=== PATIENT | female | born 1960 | race Caucasian/White ===

== ENCOUNTER → 2017-05-03 | Outpatient (CLI) | payer BC ==
[~2017-05-03] MED LIST: PROZAC20 MG
== END | disposition home or self-care (01) ==
LOC: US 09:49 → MAMMO 11:00
DX: Z13.820 Encounter for screening for osteoporosis (principal); Z12.31 Encounter for screening mammogram for malignant neoplasm of breast; E04.1 Nontoxic single thyroid nodule; N95.9 Unspecified menopausal and perimenopausal disorder; Z90.710 Acquired absence of both cervix and uterus; Z87.310 Personal history of (healed) osteoporosis fracture

== ENCOUNTER → 2017-08-10 | Day surgery (SDC) | payer BC ==
[~2017-08-10] VITALS: Ht 165.1 cm; Wt 54.4 kg
[~2017-08-10] MED LIST changes: +NORCO 5-325 TA1 EACH PO
--- NOTE | ~2017-08-10 | PROC NOTE ---
[place], [place] PROCEDURE NOTE NAME: [facility] #: [id number] UNIT #: [id number] ROOM: DOCTOR: LEOBARDO ENCISO MD BIRTHDATE: [birth year] DOS: 08/10/2017 PREOPERATIVE DIAGNOSIS: Right shoulder and left facial cyst. POSTOPERATIVE DIAGNOSIS: Right shoulder and left facial cyst. PROCEDURE: Excision of right shoulder and left facial cyst. SURGEON: Leobardo Enciso MD COLLECTION CARD CLERK: [id number]. ANESTHESIA: Local (11 mL of 1% plain lidocaine). INDICATIONS: This is a 57-year-old lady with symptomatic cyst on the right posterior shoulder and the left face, who is here for the above-mentioned procedure. The procedure and its complications were explained to the patient in detail preoperatively. Complications that were discussed included but were not limited to bleeding, infection, hematoma/seroma/abscess formation and prolonged pain. She agreed to proceed. DESCRIPTION OF PROCEDURE: After identifying the patient, the patient was brought to the operating suite and placed in the left lateral position. It was decided to proceed with the right shoulder cyst first. Timeout procedure was called and the parts were painted and draped in the usual sterile fashion. An incision in an elliptical fashion was marked and local anesthesia was given. The cyst was incised in its entirety with the help of a knife and removed with the help of electrocautery. It was sent for histopathological diagnosis. Hemostasis was achieved with the help of electrocautery. Thereafter, the subcutaneous tissue was approximated with the help of 3-0 Vicryl in interrupted fashion and the skin edges were approximated with the help of 2-0 nylon in an interrupted simple fashion. A dressing was placed. The patient was then turned to her right side and the parts were then painted and draped in the usual sterile fashion. The incision was marked and local anesthesia was infiltrated. The cyst was then excised in its entirety after incising it with a knife and sending it for histopathological diagnosis. Thereafter, hemostasis was achieved and the subcutaneous tissue was approximated with the help of 3-0 Vicryl and the skin edges were approximated with the help of 4-0 Vicryl in a subcuticular fashion. A dressing was placed. The patient tolerated the procedure well. There were no complications. She was brought back to the recovery room in stable fashion. Dr. Leobardo Enciso, the attending surgeon, was present throughout the operating case. [place], [place] PROCEDURE NOTE NAME: [facility] UNIT #: [id number] ROOM: DOCTOR: LEOBARDO ENCISO MD BIRTHDATE: [birth year] Leobardo Enciso MD CM:PROCNOTE:PROCEDURE NOTE [id number] LEOBARDO ENCISO MD
[2017-08-10 07:53] VITALS: BP 132/61
[2017-08-10 08:07] VITALS: BP 121/67
[2017-08-10 08:28] VITALS: BP 129/78
== END | disposition home or self-care (01) ==
LOC: SDC 08-07 09:30
DX: L72.0 Epidermal cyst (principal); L08.89 Other specified local infections of the skin and subcutaneous tissue; K21.9 Gastro-esophageal reflux disease without esophagitis; F41.9 Anxiety disorder, unspecified; Z90.710 Acquired absence of both cervix and uterus

== ENCOUNTER → 2018-08-15 | Outpatient (CLI) | payer BC ==
[2018-08-15 10:26] LABS: BASO % 0.8 % (0.0-1.0); EOS # 0.2 10*3/uL (0.0-0.4); EOS % 3.4 % (1.0-4.0); HEMATOCRIT 42.4 % (37.0-47.0); HEMOGLOBIN 13.6 g/dl (12.0-16.0); LYMPH # 1.6 10*3/uL (1.3-4.4); LYMPH % 30.9 % (27.0-41.0); MEAN CELL VOLUME 98.4 fl (81.0-99.0); MEAN CORPUSCULAR HGB 31.6 pg (27.0-31.0); MEAN CORPUSCULAR HGB CONC 32.1 g/dl (33.0-37.0); MEAN PLATELET VOLUME 10.7 fl (9.6-12.3); MONO # 0.4 10*3/uL (0.1-1.0); MONO % 6.6 % (3.0-9.0); NEUT # 3.1 10*3/uL (2.3-7.9); NEUT % 57.9 % (47.0-73.0); PLATELET COUNT AUTOMATED 217 10*3/uL (130-400); RED BLOOD COUNT 4.31 10*6/uL (4.10-5.10); WHITE BLOOD COUNT 5.3 10*3/uL (4.8-10.8)
[2018-08-15 10:41] LABS: CHLORIDE 111 mmol/L (98-107); POTASSIUM 3.8 mmol/L (3.5-5.1); SODIUM 143 mmol/L (136-145)
[2018-08-15 11:03] LABS: ALBUMIN 3.9 gm/dl (3.1-4.5); ALKALINE PHOSPHATASE 95 U/L (45-117); BUN 23 mg/dl (7-24); CHOLESTEROL 207 mg/dL (<200); CREATININE 0.78 mg/dL (0.55-1.02); FREE T4 0.83 ng/dl (0.76-1.46); HDL CHOLESTEROL 74 mg/dl (40-60); LDL CHOLESTEROL 122 mg/dL (9-159); SGOT/AST 16 IU/L (3-35); SGPT/ALT 22 U/L (12-78); TOTAL PROTEIN 7.1 gm/dL (6.4-8.2); TRIGLYCERIDES 54 mg/dl (<150); VLDL CHOLESTEROL 11 mg/dL (6-40)
[2018-08-15 12:09] LABS: VITAMIN D, 25-HYDROXY 35.4 ng/mL (30-100)
== END | disposition home or self-care (01) ==
LOC: LAB 08:27 → MAMMO 08:40
PROVIDERS: Internal Medicine
DX: Z12.31 Encounter for screening mammogram for malignant neoplasm of breast (principal); Z13.1 Encounter for screening for diabetes mellitus; Z13.21 Encounter for screening for nutritional disorder; Z13.220 Encounter for screening for lipoid disorders; Z00.01 Encounter for general adult medical examination with abnormal findings; E04.1 Nontoxic single thyroid nodule

== ENCOUNTER → 2019-03-13 | Outpatient (CLI) | payer BC ==
[2019-03-13 17:20] LABS: CREATININE 0.79 mg/dL (0.55-1.02)
== END | disposition home or self-care (01) ==
LOC: LAB 16:38
PROVIDERS: Internal Medicine
DX: R10.9 Unspecified abdominal pain (principal)

== ENCOUNTER → 2019-03-17 | Outpatient (CLI) | payer BC | END | disposition home or self-care (01) | LOC: CT 01:24 | DX: N28.1 Cyst of kidney, acquired (principal); R93.89 Abnormal findings on diagnostic imaging of other specified body structures; Z90.49 Acquired absence of other specified parts of digestive tract; Z90.710 Acquired absence of both cervix and uterus ==

== ENCOUNTER → 2019-04-10 | Outpatient (CLI) | payer BC | END | disposition home or self-care (01) | LOC: RAD 07:53 | DX: K56.1 Intussusception (principal); R10.9 Unspecified abdominal pain; R11.10 Vomiting, unspecified; Z90.49 Acquired absence of other specified parts of digestive tract ==

== ENCOUNTER → 2019-07-02 | Day surgery (SDC) | payer BC ==
[~2019-07-02] VITALS: Ht 165.1 cm; Wt 49.9 kg
[2019-07-02 09:11] VITALS: BP 136/61
[2019-07-02 09:46] VITALS: BP 124/73
[2019-07-02 10:01] VITALS: BP 129/70
[2019-07-02 10:16] VITALS: BP 142/55
== END | disposition home or self-care (01) ==
LOC: SDC 06-27 13:15
DX: R19.4 Change in bowel habit (principal); K29.50 Unspecified chronic gastritis without bleeding; K44.9 Diaphragmatic hernia without obstruction or gangrene; F41.9 Anxiety disorder, unspecified; K21.9 Gastro-esophageal reflux disease without esophagitis; Z90.49 Acquired absence of other specified parts of digestive tract; Z79.899 Other long term (current) drug therapy; Z98.890 Other specified postprocedural states

== ENCOUNTER → 2020-07-05 | Outpatient (CLI) | payer BC | END | disposition home or self-care (01) | LOC: CT 07:52 | PROVIDERS: ATTEND Internal Medicine | DX: N28.1 Cyst of kidney, acquired (principal); K83.8 Other specified diseases of biliary tract; D18.09 Hemangioma of other sites; Z90.49 Acquired absence of other specified parts of digestive tract; Z90.710 Acquired absence of both cervix and uterus ==

== ENCOUNTER → 2020-07-07 | Outpatient (CLI) | payer BC | END | disposition home or self-care (01) | LOC: MAMMO 08:40 → RAD 09:00 → MAMMO 09:30 | PROVIDERS: ATTEND Internal Medicine | DX: Z12.31 Encounter for screening mammogram for malignant neoplasm of breast (principal); N64.89 Other specified disorders of breast ==

== ENCOUNTER → 2022-05-03 | Outpatient (CLI) | payer BC ==
[2022-05-03 08:27] LABS: BASO # 0.1 10*3/uL (0.0-0.1); EOS # 0.1 10*3/uL (0.0-0.4); EOS % 2.6 % (1.0-4.0); HEMATOCRIT 41.6 % (37.0-47.0); LYMPH % 20.2 % (27.0-41.0); MEAN CELL VOLUME 101.2 fl (81.0-99.0); MEAN CORPUSCULAR HGB 33.3 pg (27.0-31.0); MEAN CORPUSCULAR HGB CONC 32.9 g/dl (33.0-37.0); MEAN PLATELET VOLUME 10.6 fl (9.6-12.3); MONO # 0.3 10*3/uL (0.1-1.0); MONO % 5.6 % (3.0-9.0); NEUT # 3.5 10*3/uL (2.3-7.9); NEUT % 70.2 % (47.0-73.0); PLATELET COUNT AUTOMATED 230 10*3/uL (130-400); RED BLOOD COUNT 4.11 10*6/uL (4.10-5.10); RED CELL DISTRI WIDTH 12.1 % (0-14.5)
[2022-05-03 08:51] LABS: ALKALINE PHOSPHATASE 79 U/L (46-116); BUN 16 mg/dl (9-23); CHLORIDE 106 mmol/L (98-107); CHOLESTEROL 192 mg/dL (<200); FREE T4 1.02 ng/dl (0.89-1.76); LDL CHOLESTEROL 102 mg/dL (9-159); POTASSIUM 4.2 mmol/L (3.4-5.1); SGPT/ALT 14 U/L (10-49); THYROID STIM HORMONE (HS) 1.403 uIU/ml (0.550-4.780); TOTAL PROTEIN 6.5 gm/dL (6.0-8.0); TRIGLYCERIDES 55 mg/dl (<150)
[2022-05-03 09:47] LABS: VITAMIN D, 25-HYDROXY 25.4 ng/mL (30-100)
== END | disposition home or self-care (01) ==
LOC: LAB 07:21 → MAMMO 07:30
PROVIDERS: ATTEND Internal Medicine
DX: Z12.31 Encounter for screening mammogram for malignant neoplasm of breast (principal); K58.1 Irritable bowel syndrome with constipation